=== PATIENT | male | born 1980 | race Caucasian/White ===

== ENCOUNTER 2018-02-08 08:39 | Day surgery (SDC) | payer OTHER ==
[~2018-02-08 08:39] MED LIST: CEFAZOLIN 2 GM/50 ML (PMX) 50 ML IVPB; PROPOFOL 200 MG INJ; SOD CHLORIDE 0.9% 1,000 ML IV
[2018-02-08 09:26] LABS: ADD MAN DIFF? NO
[2018-02-08 09:30] LABS: BASOPHILS % 0.7 % (0.0-2.0); EOSINOPHILS # 0.2 10^3/ul (0.0-0.5); EOSINOPHILS % 4.3 % (0.0-7.0); HEMOGLOBIN 15.4 g/dl (14.0-18.0); LYMPHOCYTES # 1.6 10^3/ul (0.8-2.9); LYMPHOCYTES % 28.8 % (15.0-51.0); MEAN CORPUSCULAR HEMOGLOBIN 29.7 pg (29.0-33.0); MEAN CORPUSCULAR HGB CONC 33.5 g/dl (32.0-37.0); MEAN CORPUSCULAR VOLUME 88.8 fl (82.0-101.0); MEAN PLATELET VOLUME 10.5 fl (7.4-10.4); MONOCYTE # 0.4 10^3/ul (0.3-0.9); MONOCYTES % 7.2 % (0.0-11.0); NEUTROPHIL # 3.2 10^3/ul (1.6-7.5); NEUTROPHILS % 58.8 % (39.0-77.0); PLATELET COUNT 219 10^3/UL (140-415); RED BLOOD COUNT 5.18 10^6/ul (4.70-6.10); RED CELL DISTRIBUTION WIDTH 11.9 % (11.5-14.5)
[2018-02-08 09:30] LABS: WHITE BLOOD COUNT 5.4 10^3/ul (4.8-10.8)
[2018-02-08 09:49] LABS: PARTIAL THROMBOPLASTIN TIME 28.8 Sec (23.0-35.0); PROTIME 12.2 Sec (11.9-14.9)
[2018-02-08 09:51] LABS: ALANINE AMINOTRANSFERASE 53 IU/L (13-69); ALBUMIN 4.6 g/dl (3.3-4.9); ALBUMIN/GLOBULIN RATIO 1.43; ALKALINE PHOSPHATASE 55 IU/L (42-121); ANION GAP 11 (5-13); ASPARTATE AMINO TRANSFERASE 38 IU/L (15-46); BILIRUBIN,INDIRECT 0.9 mg/dl (0-1.1); BILIRUBIN,TOTAL 0.9 mg/dl (0.2-1.3); BLOOD UREA NITROGEN 27 mg/dl (7-20); CALCIUM 9.2 mg/dl (8.4-10.2); CARBON DIOXIDE 24 mmol/L (21-31); CHLORIDE 106 mmol/L (97-110); GLUCOSE 95 mg/dl (70-220); POTASSIUM 4.1 mmol/L (3.5-5.1); SODIUM 141 mmol/L (135-144); TOTAL PROTEIN 7.8 g/dl (6.1-8.1)
[2018-02-08] MEDS ORDERED: PROPOFOL 20 ML (10:55)
[2018-02-08] MEDS ORDERED: FENTAnyl 50 MCG/ML VIAL (10:55)
[2018-02-08] MEDS ORDERED: CEFAZOLIN 1 GM INJ (10:55)
[2018-02-08] MEDS ORDERED: MIDAZOLAM 1 MG/ML 2 ML INJ (10:55)
[2018-02-08] MEDS ORDERED: OXYCODONE/ACETAMINOPHEN (5/325) TAB PO ×2 (11:00)
[2018-02-08] MEDS ORDERED: ONDANSETRON 4 MG INJ IV (11:00)
[2018-02-08] MEDS ORDERED: MEPERIDINE 25 MG INJ IV (11:00)
[2018-02-08] MEDS ORDERED: DIPHENHYDRAMINE 50 MG INJ IV (11:00)
[2018-02-08] MEDS ORDERED: HYDROmorphONE 1 MG/5 ML IV SYRINGE IV ×3 (11:00)
[2018-02-08] MEDS ORDERED: EPHEDrine SULFATE 50 MG/5 ML SYG (11:19)
[2018-02-08] MEDS: BUPIVACAINE 0.5% (SDV) 30 ML INJ (11:26)
[2018-02-08] MEDS: LIDOCAINE 2% (MDV) 20 ML INJ (11:27)
[2018-02-08] MEDS ORDERED: HYDROCODONE/APAP (5/325) TAB PO (12:00)
== END 2018-02-08 12:41 | disposition home or self-care (01) ==
LOC: SDS 08:39
DX: L72.0 Epidermal cyst (principal)
CPT/HCPCS: 14000; 80053; 85025; 85610; 85730; 88307